=== PATIENT | female | born 1970 | race Asian ===

== ENCOUNTER 2019-09-08 15:10 | Inpatient (IN) | payer MEDICAID, OTHER ==
[~2019-09-08] VITALS: Ht 154.9 cm; Wt 69.5 kg
[2019-09-08] MEDS ORDERED: HALO5TAB23 PO (16:29)
[2019-09-08] MEDS ORDERED: POLY17PO PO (16:29)
[2019-09-08] MEDS ORDERED: CLOZ100T57 PO (16:29)
[2019-09-08] MEDS ORDERED: BENZ1TAB10 PO (16:29)
[2019-09-08] MEDS ORDERED: FLUO20SO9 PO (16:29)
[2019-09-08] MEDS ORDERED: PRAV40TA4 PO (16:29)
[2019-09-08] MEDS ORDERED: DILT60 PO (16:29)
[2019-09-08 18:10] LABS: BASOPHILS % (AUTO) 0.8 % (0.0-2.0); EOSINOPHILS % (AUTO) 0.4 % (1.0-6.0); HEMATOCRIT 40.9 % (36-46); HEMOGLOBIN 13.5 g/dL (12.0-16.0); LYMPHOCYTES # (AUTO) 0.8 K/uL (1.0-4.8); LYMPHOCYTES % (AUTO) 14.5 % (22.0-44.0); MEAN CORPUSCULAR HEMOGLOBIN 28.5 pg (26.0-34.0); MEAN CORPUSCULAR VOLUME 87 fL (80-100); MONOCYTES # (AUTO) 0.4 K/uL (0.1-1.0); MONOCYTES % (AUTO) 6.9 % (2.0-9.0); NEUTROPHILS # (AUTO) 4.3 K/uL (1.8-7.7); NEUTROPHILS % (AUTO) 77.4 % (40.0-70.0); PLATELET COUNT (AUTO) 221 K/uL (150-450); RED BLOOD CELL COUNT(AUTO) 4.72 MIL/uL (4.00-5.20); RED CELL DISTRIBUTION WIDTH 13.8 % (11.5-14.5)
[2019-09-08 18:30] LABS: AMPHET/METH SCREEN,URINE NEGATIVE (NEGATIVE); BARBITURATE SCREEN, URINE NEGATIVE (NEGATIVE); BENZODIAZEPINES SCREEN,URINE NEGATIVE (NEGATIVE); CANNABINOID SCREEN,URINE NEGATIVE (NEGATIVE); COCAINE SCREEN,URINE NEGATIVE (NEGATIVE); METHADONE SCREEN, URINE NEGATIVE (NEGATIVE); OPIATE SCREEN,URINE NEGATIVE (NEGATIVE)
[2019-09-08 18:31] LABS: PHENCYCLIDINE SCREEN,URINE NEGATIVE (NEGATIVE)
[2019-09-08 18:44] LABS: ALANINE AMINOTRANSFERASE 29 U/L (12-78); ALBUMIN 3.8 g/dL (3.4-5.0); ALKALINE PHOSPHATASE 94 U/L (46-116); ANION GAP 6 mmol/L (8-16); ASPARTATE AMINOTRANSFERASE 13 U/L (15-37); BILIRUBIN,TOTAL 0.2 mg/dL (0.1-1.0); CALCIUM, TOTAL 8.9 mg/dL (8.8-10.5); CARBON DIOXIDE 29 mmol/L (22-29); CHLORIDE 106 mmol/L (98-107); CREATININE 0.77 mg/dL (0.60-1.30); GLOMERULAR FILTR. RATE CALC > 60 mL/min (>60); GLUCOSE,RANDOM 194 mg/dL (70-110); HCG,QUANTITATIVE 5 mIU/mL (0-6); SODIUM SERUM 141 mmol/L (136-145); TOTAL PROTEIN, SERUM 7.3 g/dL (6.4-8.2); UREA NITROGEN, BLOOD 6 mg/dL (7-18)
[2019-09-08 18:47] LABS: POTASSIUM 2.9 mmol/L (3.5-5.1)
[2019-09-08] MEDS ORDERED: FERR325T22 PO (18:59)
[2019-09-08] MEDS ORDERED: FLUO-191 PO (18:59)
[2019-09-08] MEDS ORDERED: POTASSIUM CHLORIDE 20 MEQ ER TABLET PO ONE (19:00)
[2019-09-08] MEDS ORDERED: MAGNESIUM CHLORIDE 64 MG ER TABLET PO ONE (19:15)
[2019-09-08 21:07] VITALS: BP 127/88
[2019-09-08] MEDS ORDERED: INFLUENZA VIRUS VACCINE QVS 2019-20 (3YR+)/PF 60 MCG/0.5 ML SYRINGE IM ONE (21:30)
[2019-09-08] MEDS ORDERED: ZOLPIDEM TARTRATE 10 MG TABLET PO PRN (22:45)
[2019-09-08] MEDS ORDERED: POTASSIUM CHLORIDE 10 MEQ ER TABLET PO ONE (22:45)
[2019-09-09 05:39] VITALS: BP 118/86
[2019-09-09] MEDS: FERROUS SULFATE 325 MG EC TABLET PO SCH (06:48)
[2019-09-09] MEDS: DILTIAZEM HCL CD 120 MG ER CAPSULE PO SCH (08:48)
[2019-09-09] MEDS: LORazepam 2 MG TABLET PO PRN (08:53)
[2019-09-09] MEDS ORDERED: POLYETHYLENE GLYCOL 3350 17 GM PACKET PO SCH (09:00)
[2019-09-09 09:28] VITALS: BP 143/103
[2019-09-09] MEDS: FLUoxetine HCL 20 MG CAPSULE PO SCH (10:57)
[2019-09-09] MEDS ORDERED: CloNIDine HCL 0.1 MG TABLET PO PRN (11:30)
[2019-09-09] MEDS ORDERED: PETROLATUM,WHITE 28 GM JELLY TP PRN (11:30)
[2019-09-09] MEDS ORDERED: ALBUTEROL SULFATE HFA 90 MCG/PUFF 8 GM INHALER IH PRN (11:30)
[2019-09-09] MEDS ORDERED: GuaiFENesin/D-METHORPHAN [SUGAR-FREE] 200-20MG/10 ML SYRUP UDCUP PO PRN (11:30)
[2019-09-09] MEDS ORDERED: ACETAMINOPHEN 325 MG TABLET PO PRN (11:30)
[2019-09-09] MEDS ORDERED: NICOTINE 14 MG/24 HOUR PATCH TD PRN (11:30)
[2019-09-09] MEDS ORDERED: POLYETHYLENE GLYCOL 3350 17 GM PACKET PO PRN (11:30)
[2019-09-09] MEDS ORDERED: MAG HYDROX/AL HYDROX/SIMETH ES 30 ML SUSPENSION UDCUP PO PRN (11:30)
[2019-09-09] MEDS ORDERED: ONDANSETRON HCL 4 MG TABLET PO PRN (11:30)
[2019-09-09] MEDS ORDERED: DOCUSATE SODIUM 100 MG CAPSULE PO PRN (11:30)
[2019-09-09] MEDS ORDERED: LOPERAMIDE HCL 2 MG CAPSULE PO PRN (11:30)
[2019-09-09] MEDS ORDERED: MAGNESIUM HYDROXIDE SUSPENSION 30 ML UDCUP PO PRN (11:30)
[2019-09-09 19:32] VITALS: BP 130/90
[2019-09-09] MEDS ORDERED: PRAVASTATIN SODIUM 40 MG TABLET PO SCH (21:00)
[2019-09-09] MEDS: BENZTROPINE MESYLATE 1 MG TABLET PO SCH (21:47)
[2019-09-10] MEDS: FERROUS SULFATE 325 MG EC TABLET PO SCH (06:40)
[2019-09-10 07:00] LABS: BASOPHILS % (AUTO) 0.6 % (0.0-2.0); EOSINOPHILS % (AUTO) 1.6 % (1.0-6.0); HEMATOCRIT 38.7 % (36-46); HEMOGLOBIN 12.9 g/dL (12.0-16.0); LYMPHOCYTES # (AUTO) 1.7 K/uL (1.0-4.8); LYMPHOCYTES % (AUTO) 24.7 % (22.0-44.0); MEAN CORPUSCULAR HEMOGLOBIN 29.3 pg (26.0-34.0); MEAN CORPUSCULAR HGB CONC 33.3 G/dL (31.0-37.0); MEAN CORPUSCULAR VOLUME 88 fL (80-100); MONOCYTES # (AUTO) 0.7 K/uL (0.1-1.0); MONOCYTES % (AUTO) 9.7 % (2.0-9.0); NEUTROPHILS # (AUTO) 4.3 K/uL (1.8-7.7); NEUTROPHILS % (AUTO) 63.4 % (40.0-70.0); PLATELET COUNT (AUTO) 212 K/uL (150-450); RED CELL DISTRIBUTION WIDTH 14.4 % (11.5-14.5)
[2019-09-10] MEDS ORDERED: FERROUS SULFATE 325 MG EC TABLET PO SCH (07:30)
[2019-09-10 08:51] VITALS: BP 147/83
[2019-09-10] MEDS ORDERED: CloZAPine 25 MG TABLET PO SCH (09:00)
[2019-09-10] MEDS: FLUoxetine HCL 20 MG CAPSULE PO SCH (09:23)
[2019-09-10] MEDS: PRAVASTATIN SODIUM 40 MG TABLET PO SCH (09:23)
[2019-09-10] MEDS: DILTIAZEM HCL CD 120 MG ER CAPSULE PO SCH (09:23)
[2019-09-10] MEDS: BENZTROPINE MESYLATE 1 MG TABLET PO SCH ×2 (09:24→20:11)
[2019-09-10] MEDS: HALOPERIDOL 5 MG TABLET PO PRN (18:19)
[2019-09-10] MEDS: LORazepam 2 MG TABLET PO PRN (18:19)
[2019-09-10 18:26] VITALS: BP 130/87
[2019-09-11 03:37] VITALS: BP 122/79
[2019-09-11] MEDS: FERROUS SULFATE 325 MG EC TABLET PO SCH (06:46)
[2019-09-11 08:30] VITALS: BP 118/88
[2019-09-11] MEDS ORDERED: CloZAPine 25 MG TABLET PO SCH ×2 (09:00→21:00)
[2019-09-11] MEDS: BENZTROPINE MESYLATE 1 MG TABLET PO SCH ×2 (09:17→20:12)
[2019-09-11] MEDS: FLUoxetine HCL 20 MG CAPSULE PO SCH (09:19)
[2019-09-11] MEDS: DILTIAZEM HCL CD 120 MG ER CAPSULE PO SCH (09:19)
[2019-09-11] MEDS: PRAVASTATIN SODIUM 40 MG TABLET PO SCH (09:19)
[2019-09-11 17:42] VITALS: BP 122/75
[2019-09-12] MEDS: LORazepam 2 MG TABLET PO PRN (06:15)
[2019-09-12] MEDS: BENZTROPINE MESYLATE 1 MG TABLET PO SCH ×2 (08:27→20:48)
[2019-09-12] MEDS: DILTIAZEM HCL CD 120 MG ER CAPSULE PO SCH (08:29)
[2019-09-12] MEDS: FERROUS SULFATE 325 MG EC TABLET PO SCH (08:29)
[2019-09-12] MEDS: FLUoxetine HCL 20 MG CAPSULE PO SCH (08:29)
[2019-09-12 08:30] VITALS: BP 123/79
[2019-09-12] MEDS: PRAVASTATIN SODIUM 40 MG TABLET PO SCH (08:30)
[2019-09-12] MEDS ORDERED: CloZAPine 25 MG TABLET PO SCH ×2 (09:00→21:00)
[2019-09-12 16:40] VITALS: BP 114/75
[2019-09-13] MEDS: FERROUS SULFATE 325 MG EC TABLET PO SCH (06:52)
[2019-09-13 08:31] VITALS: BP 119/77
[2019-09-13] MEDS: CloZAPine 25 MG TABLET PO SCH ×2 (08:44→20:42)
[2019-09-13] MEDS: BENZTROPINE MESYLATE 1 MG TABLET PO SCH ×2 (08:45→20:42)
[2019-09-13] MEDS: FLUoxetine HCL 20 MG CAPSULE PO SCH (08:45)
[2019-09-13] MEDS: PRAVASTATIN SODIUM 40 MG TABLET PO SCH (08:45)
[2019-09-13] MEDS: DILTIAZEM HCL CD 120 MG ER CAPSULE PO SCH (08:45)
[2019-09-13 16:53] VITALS: BP 139/58
[2019-09-14] MEDS: FERROUS SULFATE 325 MG EC TABLET PO SCH (06:56)
[2019-09-14] MEDS: FLUoxetine HCL 20 MG CAPSULE PO SCH (08:22)
[2019-09-14] MEDS: CloZAPine 25 MG TABLET PO SCH ×2 (08:22→20:06)
[2019-09-14] MEDS: BENZTROPINE MESYLATE 1 MG TABLET PO SCH ×2 (08:22→20:06)
[2019-09-14] MEDS: PRAVASTATIN SODIUM 40 MG TABLET PO SCH (08:22)
[2019-09-14] MEDS: DILTIAZEM HCL CD 120 MG ER CAPSULE PO SCH (09:10)
[2019-09-14 10:08] VITALS: BP 122/84
[2019-09-14] MEDS: LORazepam 2 MG TABLET PO PRN (16:03)
[2019-09-14 16:44] VITALS: BP 108/68
[2019-09-15] MEDS: FERROUS SULFATE 325 MG EC TABLET PO SCH (06:36)
[2019-09-15] MEDS ORDERED: CloZAPine 25 MG TABLET PO SCH (09:00)
[2019-09-15] MEDS: BENZTROPINE MESYLATE 1 MG TABLET PO SCH ×2 (09:05→20:27)
[2019-09-15] MEDS: FLUoxetine HCL 20 MG CAPSULE PO SCH (09:05)
[2019-09-15] MEDS: PRAVASTATIN SODIUM 40 MG TABLET PO SCH (09:06)
[2019-09-15] MEDS: DILTIAZEM HCL CD 120 MG ER CAPSULE PO SCH (09:06)
[2019-09-15] MEDS: LORazepam 2 MG TABLET PO PRN (09:07)
[2019-09-15] MEDS: HALOPERIDOL 5 MG TABLET PO PRN (09:07)
[2019-09-15 09:39] VITALS: BP 106/58
[2019-09-15 17:41] VITALS: BP 112/73
[2019-09-15] MEDS ORDERED: CloZAPine 100 MG TABLET PO SCH (21:00)
[2019-09-16] MEDS: FERROUS SULFATE 325 MG EC TABLET PO SCH (06:56)
[2019-09-16] MEDS: PRAVASTATIN SODIUM 40 MG TABLET PO SCH (08:40)
[2019-09-16] MEDS: FLUoxetine HCL 20 MG CAPSULE PO SCH (08:40)
[2019-09-16] MEDS: DILTIAZEM HCL CD 120 MG ER CAPSULE PO SCH (08:40)
[2019-09-16] MEDS: BENZTROPINE MESYLATE 1 MG TABLET PO SCH ×2 (08:40→20:02)
[2019-09-16] MEDS ORDERED: CloZAPine 25 MG TABLET PO SCH (09:00)
[2019-09-16] MEDS: CloZAPine 25 MG TABLET PO SCH (09:00)
[2019-09-16 09:24] VITALS: BP 136/97
[2019-09-16 16:36] VITALS: BP 142/86
[2019-09-16] MEDS: CloZAPine 100 MG TABLET PO SCH (20:02)
[2019-09-16] MEDS ORDERED: CloZAPine 100 MG TABLET PO SCH (21:00)
[2019-09-17 05:04] VITALS: BP 105/65
[2019-09-17] MEDS: FERROUS SULFATE 325 MG EC TABLET PO SCH (06:39)
[2019-09-17 07:17] LABS: BASOPHILS % (AUTO) 0.4 % (0.0-2.0); EOSINOPHILS % (AUTO) 0.7 % (1.0-6.0); HEMATOCRIT 37.8 % (36-46); HEMOGLOBIN 12.7 g/dL (12.0-16.0); LYMPHOCYTES # (AUTO) 1.6 K/uL (1.0-4.8); MEAN CORPUSCULAR HEMOGLOBIN 29.4 pg (26.0-34.0); MEAN CORPUSCULAR HGB CONC 33.5 G/dL (31.0-37.0); MEAN CORPUSCULAR VOLUME 88 fL (80-100); MONOCYTES # (AUTO) 0.6 K/uL (0.1-1.0); MONOCYTES % (AUTO) 8.9 % (2.0-9.0); NEUTROPHILS # (AUTO) 4.3 K/uL (1.8-7.7); PLATELET COUNT (AUTO) 206 K/uL (150-450); RED BLOOD CELL COUNT(AUTO) 4.31 MIL/uL (4.00-5.20); RED CELL DISTRIBUTION WIDTH 13.8 % (11.5-14.5)
[2019-09-17] MEDS ORDERED: CloZAPine 25 MG TABLET PO SCH (09:00)
[2019-09-17] MEDS: BENZTROPINE MESYLATE 1 MG TABLET PO SCH ×2 (09:20→20:21)
[2019-09-17] MEDS: DILTIAZEM HCL CD 120 MG ER CAPSULE PO SCH (09:20)
[2019-09-17] MEDS: PRAVASTATIN SODIUM 40 MG TABLET PO SCH (09:20)
[2019-09-17] MEDS: CloZAPine 25 MG TABLET PO SCH (09:20)
[2019-09-17] MEDS: FLUoxetine HCL 20 MG CAPSULE PO SCH (09:20)
[2019-09-17 10:22] VITALS: BP 133/93
[2019-09-17 16:31] VITALS: BP 114/64
[2019-09-17] MEDS: LORazepam 2 MG TABLET PO PRN (16:51)
[2019-09-17] MEDS: CloZAPine 100 MG TABLET PO SCH (20:21)
[2019-09-17] MEDS ORDERED: CloZAPine 100 MG TABLET PO SCH (21:00)
[2019-09-18 05:38] VITALS: BP 129/88
[2019-09-18] MEDS: FERROUS SULFATE 325 MG EC TABLET PO SCH (06:43)
[2019-09-18 08:00] VITALS: BP 139/84
[2019-09-18] MEDS ORDERED: CloZAPine 100 MG TABLET PO SCH (09:00)
[2019-09-18] MEDS: CloZAPine 25 MG TABLET PO SCH (09:58)
[2019-09-18] MEDS: PRAVASTATIN SODIUM 40 MG TABLET PO SCH (09:58)
[2019-09-18] MEDS: BENZTROPINE MESYLATE 1 MG TABLET PO SCH (09:58)
[2019-09-18] MEDS: FLUoxetine HCL 20 MG CAPSULE PO SCH (09:58)
[2019-09-18] MEDS: LORazepam 2 MG TABLET PO PRN (09:59)
[2019-09-18] MEDS: DILTIAZEM HCL CD 120 MG ER CAPSULE PO SCH (10:00)
[2019-09-18] MEDS ORDERED: BENZ1TAB10 PO (11:11)
[2019-09-18] MEDS ORDERED: FLUO-191 PO (11:11)
[2019-09-18] MEDS ORDERED: CLOZ100T57 PO (11:11)
[2019-09-18] MEDS ORDERED: CLOZ25TA PO (11:11)
[2019-09-20] MEDS ORDERED: CloZAPine 25 MG TABLET PO SCH (09:00)
[2019-09-20] MEDS ORDERED: CloZAPine 100 MG TABLET PO SCH (21:00)
[2019-09-21] MEDS ORDERED: CloZAPine 25 MG TABLET PO SCH (09:00)
[2019-09-21] MEDS ORDERED: CloZAPine 100 MG TABLET PO SCH (21:00)
[2019-09-22] MEDS ORDERED: CloZAPine 100 MG TABLET PO SCH ×2 (09:00→21:00)
== END 2019-09-18 14:55 | disposition home or self-care (01) | DRG 885 ==
LOC: EMS 15:10 → 3EI 20:42
DX: F20.0 Paranoid schizophrenia (principal); R45.851 Suicidal ideations; D64.9 Anemia, unspecified; E78.5 Hyperlipidemia, unspecified; E87.6 Hypokalemia; I10 Essential (primary) hypertension; K59.09 Other constipation; Z79.899 Other long term (current) drug therapy
CPT/HCPCS: 83036; 83735; 84132; G0480

== ENCOUNTER 2019-09-23 12:21 | Emergency (ER) | payer MEDICAID, OTHER ==
[~2019-09-23] VITALS: Ht 154.9 cm; Wt 70.5 kg
[~2019-09-23 12:21] MED LIST: BENZ1TAB10 PO; CLOZ100T32 PO; CLOZ25TA5 PO; DILT60 PO; FERR325T22 PO; FLUO-191 PO; PRAV40TA4 PO
[2019-09-23] MEDS ORDERED: HALO2 PO (13:46)
[2019-09-23 15:24] LABS: BASOPHILS % (AUTO) 0.3 % (0.0-2.0); EOSINOPHILS % (AUTO) 0.7 % (1.0-6.0); HEMATOCRIT 40.7 % (36-46); HEMOGLOBIN 13.4 g/dL (12.0-16.0); LYMPHOCYTES # (AUTO) 1.2 K/uL (1.0-4.8); LYMPHOCYTES % (AUTO) 13.2 % (22.0-44.0); MEAN CORPUSCULAR VOLUME 88 fL (80-100); MONOCYTES # (AUTO) 0.6 K/uL (0.1-1.0); MONOCYTES % (AUTO) 6.2 % (2.0-9.0); NEUTROPHILS # (AUTO) 7.6 K/uL (1.8-7.7); NEUTROPHILS % (AUTO) 79.6 % (40.0-70.0); PLATELET COUNT (AUTO) 222 K/uL (150-450); RED BLOOD CELL COUNT(AUTO) 4.63 MIL/uL (4.00-5.20)
[2019-09-23 15:38] LABS: ANION GAP 8 mmol/L (8-16); CARBON DIOXIDE 29 mmol/L (22-29); CHLORIDE 105 mmol/L (98-107); CREATININE 0.79 mg/dL (0.60-1.30); GLOMERULAR FILTR. RATE CALC > 60 mL/min (>60); GLUCOSE,RANDOM 95 mg/dL (70-110); POTASSIUM 3.2 mmol/L (3.5-5.1); SODIUM SERUM 142 mmol/L (136-145); UREA NITROGEN, BLOOD 9 mg/dL (7-18)
[2019-09-23] MEDS ORDERED: POTASSIUM CHLORIDE 20 MEQ ER TABLET PO ONE (15:45)
[2019-09-23 15:51] LABS: SALICYLATE 1.6 mg/dL (2.8-20.0)
[2019-09-23 15:57] LABS: AMPHET/METH SCREEN,URINE NEGATIVE (NEGATIVE); BARBITURATE SCREEN, URINE NEGATIVE (NEGATIVE); BENZODIAZEPINES SCREEN,URINE NEGATIVE (NEGATIVE); CANNABINOID SCREEN,URINE NEGATIVE (NEGATIVE); COCAINE SCREEN,URINE NEGATIVE (NEGATIVE); METHADONE SCREEN, URINE NEGATIVE (NEGATIVE); OPIATE SCREEN,URINE NEGATIVE (NEGATIVE)
[2019-09-23 15:59] LABS: PHENCYCLIDINE SCREEN,URINE NEGATIVE (NEGATIVE)
[2019-09-23 16:00] LABS: ALANINE AMINOTRANSFERASE 25 U/L (12-78); ALBUMIN 3.8 g/dL (3.4-5.0); ALKALINE PHOSPHATASE 89 U/L (46-116); ASPARTATE AMINOTRANSFERASE 10 U/L (15-37); BILIRUBIN,TOTAL 0.3 mg/dL (0.1-1.0); HCG,QUANTITATIVE 4 mIU/mL (0-6); TOTAL PROTEIN, SERUM 7.1 g/dL (6.4-8.2)
[2019-09-23 16:16] LABS: ACETAMINOPHEN < 2 mcg/mL (10-30)
[2019-09-23 16:22] VITALS: BP 141/77
== END 2019-09-23 16:27 | disposition home or self-care (01) ==
LOC: EMS 12:23
DX: R45.851 Suicidal ideations (principal); F41.9 Anxiety disorder, unspecified; F20.9 Schizophrenia, unspecified; Z79.82 Long term (current) use of aspirin; Z79.899 Other long term (current) drug therapy
CPT/HCPCS: 36415; 80053; 80307; 84702; 85025; 99284; G0480; G0481